=== PATIENT | male | born 1965 | race Two or more races ===

== ENCOUNTER 2017-05-22 21:32 | Emergency (ER) | payer BC, OTHER ==
[2017-05-22 21:48] VITALS: TEMP 98.1
[2017-05-22] MEDS ORDERED: TDAP Vaccine 0.5 mL Syr IM ONE (21:57)
--- NOTE | 2017-05-22 21:57 | ED PDOC ---
Arrival/HPI - General Historian: Patient, Police <Lars De La Cruz - Last Filed: 05/22/17 23:06> <Yeison Andrews - Last Filed: 05/22/17 23:24> - General Chief Complaint: Abnormal Skin Integrity Time Seen by Provider: 05/22/17 21:52 - History of Present Illness Narrative History of Present Illness (Text): 05/22/17 21:54 This patient is a 52yo M who was brought in by police after he had his left hand slammed in a car door. The patient is not complaining of any pain in the area. Denies any illicit drug use, EtOH use, or any complaints. Denies fevers/ chills, BLAIR, CP, SOB, abdominal pain, N/V/D, dysuria/freq/urg, or lower extremity pain/swelling. States he fell after getting his hand caught/slammed in the door and has an abrasion on his face that is not bothering him. PMhx: Denies Meds: Denies FamHx: Denies Allergies: Denies Surgeries: Denies Social: Denies illicit drug use; denies EtOH or cigarettes, lives alone ([place]) Past Medical History - Provider Review Nursing Documentation Reviewed: Yes - Travel History Have you recently traveled outside [place] w/in the past 3 mons?: No - Past History Past History: No Previous - Infectious Disease Hx of Infectious Diseases: None - Tetanus Immunization Tetanus Immunization: >10 years Ago - Psychiatric Hx Substance Use: No <Lars De La Cruz - Last Filed: 05/22/17 23:06> Family/Social History Family/Social History: No Known Family HX Smoking Status: no Hx Alcohol Use: Yes Hx Substance Use: No <Lars De La Cruz - Last Filed: 05/22/17 23:06> Allergies/Home Meds <Lars De La Cruz - Last Filed: 05/22/17 23:06> <Yeison Andrews - Last Filed: 05/22/17 23:24> Allergies/Adverse Reactions: Allergies No Known Allergies Allergy (Verified 05/22/17 21:47) Review of Systems - Physician Review All systems were reviewed & negative as marked: Yes <Lars De La Cruz - Last Filed: 05/22/17 23:06> Physical Exam Temperature: Afebrile Blood Pressure: Normal Pulse: Regular Respiratory Rate: Normal Appearance: Positive for: Well-Appearing (has a small abrasion on the nose) Pain Distress: None Mental Status: Positive for: Alert and Oriented X 3 - Systems Exam Head: Present: Abrasion (nose) Pupils: Present: PERRL Extroacular Muscles: Present: EOMI Conjunctiva: Present: Normal Respiratory/Chest: Present: Clear to Auscultation, Good Air Exchange. No: Respiratory Distress Cardiovascular: Present: Regular Rate and Rhythm Abdomen: No: Tenderness Upper Extremity: Present: Normal Inspection. No: Cyanosis, Edema Lower Extremity: Present: Normal Inspection. No: Edema Neurological: Present: GCS=15, CN II-XII Intact Skin: Present: Warm <Lars De La Cruz - Last Filed: 05/22/17 23:06> Medical Decision Making <Lars De La Cruz - Last Filed: 05/22/17 23:06> <Yeison Andrews - Last Filed: 05/22/17 23:24> ED Course and Treatment: 05/22/17 21:58 Will Order X-Ray Tetanus Vaccine Vaccine Ring and middle finger will need to be sutured after x-rays rule out foreign bodies/broken bones 05/22/17 23:08 Ring and middle fingers were sutured patient tolerated the procedure well patient will be released to custody patient is stable for discharge case discussed with dr andrews (Lars De La Cruz) 05/22/17 23:22 Patient seen and examined with resident. lacerations are noted. Patient is nv intact with no evidence of tendon injury. X-ray is negative. Tdap updated. Laceration sutured; d/c in police custody. (Yeison Andrews) - RAD Interpretation Radiology Orders: 05/22/17 21:52 HAND LEFT 3 VIEWS ROUTINE [RAD] Stat - Medication Orders Current Medication Orders: Discontinued Medications Lidocaine HCl (Lidocaine 1% (20ml)) Confirm Administered Dose 20 ml .ROUTE .STK- MED ONE Stop: 05/22/17 22:27 Tetanus/Reduced Diphtheria/Acell Pertussis (Boostrix Vaccine Inj) 0.5 ml IM .ONCE ONE Stop: 05/22/17 21:58 Last Admin: 05/22/17 22:15 Dose: 0.5 ml Procedure: Wound Repair - Time Performed Time Performed: 23:06 - Time Out Time Out: Side verified, Site verified, Patient ID confirmed, Sterile procedures obs. - Consent Obtained Consent obtained: Verbal - Performed by Performed by: Mid-level Provider - Indications Indication(s):: Laceration - Location Location:: Left Finger:: Middle, Ring Shape:: Linear Depth:: Subcutaneous fascia - Anesthetic Technique Anesthetic Technique: Local Local/Regional Anesthetic:: Lidocaine 1% - Debris Debris:: None - Complexity Complexity:: Simple (one layer) - Wound repair method Sutures:: # (3), Size (3-0 Prolene), Type (3, interupted sutures placed on both fingers. 6 total. ) - Patient tolerated procedure Patient Tolerated Procedure:: Well <Lars De La Cruz - Last Filed: 05/22/17 23:06> - PA / PROGRAM EVALUATOR / Resident Statement / has reviewed & agrees with the documentation as recorded. / has examined the patient and agrees with the treatment plan. <Yeison Andrews - Last Filed: 05/22/17 23:24> Disposition/Present on Arrival - Present on Arrival Any Indicators Present on Arrival: No History of DVT/PE: No History of Uncontrolled Diabetes: No Urinary Catheter: No History of Decub. Ulcer: No History Surgical Site Infection Following: None - Disposition Have Diagnosis and Disposition been Completed?: Yes Disposition Time: 23:09 Patient Plan: Discharge <Lars De La Cruz - Last Filed: 05/22/17 23:06> <Yeison Andrews - Last Filed: 05/22/17 23:24> - Disposition Diagnosis: Laceration Disposition: RELEASED IN POLICE CUSTODY Patient Problems: Current Active Problems Problem Status Onset Laceration Acute Condition: FAIR Discharge Instructions (ExitCare): Laceration (ED), Care For Your Stitches (ED) Additional Instructions: Keep wound clean. Follow up in 7-10 days for suture removal. Return to the emergency department if any new concerning symptoms. Prescriptions: Cephalexin [Keflex] 500 mg PO TID #15 cap
[2017-05-22] MEDS ORDERED: Lidocaine 1% Inj (20ml) ONE (22:26)
[2017-05-22 23:19] VITALS: BP 135/89; PULSE 89; RESP 16; O2SAT 100
--- NOTE | 2017-05-23 07:49 | RAD ---
PROCEDURE: Left Hand Radiographs. HISTORY: slammed hand in door COMPARISON: None. FINDINGS: BONES: Normal. No fracture. JOINTS: First metacarpal phalangeal mild osteoarthritic changes. SOFT TISSUES: Normal. OTHER FINDINGS: Ring obscures 4th proximal phalangeal bone IMPRESSION: No fracture dislocation. First metacarpal phalangeal joint mild arthrosis
== END 2017-05-22 23:38 ==
LOC: ED 21:32
DX: S61.213A Laceration without foreign body of left middle finger without damage to nail, initial encounter (principal); S61.215A Laceration without foreign body of left ring finger without damage to nail, initial encounter; W23.0XXA Caught, crushed, jammed, or pinched between moving objects, initial encounter; Y93.89 Activity, other specified; Y92.89 Other specified places as the place of occurrence of the external cause; Z65.3 Problems related to other legal circumstances; Z23 Encounter for immunization